=== PATIENT | female | born 1990 | race Two or more races ===

== ENCOUNTER 2025-07-27 08:36 | Outpatient (CLI) | payer OTHER | END 2025-07-27 09:30 | disposition home or self-care (01) | LOC: PRENATAL 08:36 | PROVIDERS: ATTEND Obstetrics & Gynecology Maternal & Fetal Medicine | DX: O36.80X0 Pregnancy with inconclusive fetal viability, not applicable or unspecified (principal); Z36.82 Encounter for antenatal screening for nuchal translucency; O09.511 Supervision of elderly primigravida, first trimester; Z3A.12 12 weeks gestation of pregnancy ==